=== PATIENT | male | born 1975 | race Caucasian/White ===

== ENCOUNTER 2019-11-06 07:55 | Outpatient (CLI) | payer BC ==
[2019-11-06] VITALS (7 sets, daily range): BP systolic 121–164; BP diastolic 82–108; PULSE 78–91; TEMP 98.5
[~2019-11-06] VITALS: Ht 175.3 cm; Wt 105.9 kg
[2019-11-06 08:24] LABS: HEMOGLOBIN 15.8 g/dl (13.5-18.0); MEAN CELL VOLUME 91 fl (80.0-100.0); MEAN CORPUSCULAR HEMOGLOBIN 31 pg (27.0-31.0); MEAN CORPUSCULAR HGB CONC 34 g/dl (33.0-37.0); MEAN PLATELET VOLUME 10.1 fl (7.4-10.4); PLATELET COUNT 227 K/mm3 (130-400); RED BLOOD COUNT 5.07 M/mm3 (4.20-5.60); REDCELL DISTRIBUTION WIDTH-CV 12.8 % (11.5-14.5)
[2019-11-06 08:32] LABS: INR 0.9 (0.8-3.0); PROTHROMBIN TIME 10.2 SECONDS (9.7-12.8)
[2019-11-06 08:39] LABS: CALCIUM 9.6 mg/dL (8.4-10.2); CREATININE, serum 0.89 (0.66-1.25); POTASSIUM 4.4 mmol/L (3.4-5.0)
[2019-11-06] MEDS ORDERED: MULTI VITAMINS1 TAB PO (08:44)
--- NOTE | 2019-11-06 09:40 | NUR ---
FERCHO complete. Pt resting in bed. VS back to baseline. Spouse bedside
--- NOTE | 2019-11-06 10:40 | NUR ---
INT discontinued intact . Discharge instructions given . Transferred to private car by rajesh
== END 2019-11-06 10:41 | disposition home or self-care (01) ==
LOC: COL.RAD 07:55
PROVIDERS: Internal Medicine Cardiovascular Disease
DX: I35.0 Nonrheumatic aortic (valve) stenosis (principal)
CPT/HCPCS: J2250; J2704; J3010; J7120

== ENCOUNTER → 2020-08-07 | Outpatient (CLI) | payer BC ==
[~2020-08-07] VITALS: Ht 175.3 cm; Wt 109.3 kg
[~2020-08-07] MED LIST: MULTI VITAMINS1 TAB PO; ONE-A-DAY ESSE1 EACH PO
[2020-08-07 11:47] VITALS: BP 171/119; PULSE 89
--- NOTE | 2020-08-07 11:57 | NUR ---
repeat blood pressure 171/102
[2020-08-07 13:10] VITALS: BP 172/111; PULSE 85
== END ==
LOC: COL.RAD 07-28 11:45
DX: M51.9 Unspecified thoracic, thoracolumbar and lumbosacral intervertebral disc disorder (principal)
CPT/HCPCS: J3301

== ENCOUNTER 2021-10-08 15:14 | Inpatient (IN) | payer BC ==
[~2021-10-08] VITALS: Ht 172.7 cm; Wt 113.7 kg
[2021-10-08 16:24] LABS: BASO % 0.1 % (0.0-2.0); GRAN # 5.8 K/mm3 (1.4-6.5); GRAN % 86.9 % (42.2-75.2); HEMATOCRIT 42.1 % (42.0-52.0); HEMOGLOBIN 14.7 g/dl (13.5-18.0); LYMPH # 0.7 K/mm3 (1.2-3.4); MEAN CELL VOLUME 87 fl (80.0-100.0); MEAN CORPUSCULAR HEMOGLOBIN 30 pg (27-31); MEAN CORPUSCULAR HGB CONC 35 g/dl (33.0-37.0); MEAN PLATELET VOLUME 10.8 fl (7.4-10.4); MONO # 0.2 K/mm3 (0.1-0.6); MONO % 2.7 % (1.7-9.3); PLATELET COUNT 155 K/mm3 (130-400); RED BLOOD COUNT 4.83 M/mm3 (4.20-5.60); REDCELL DISTRIBUTION WIDTH-CV 12.5 % (11.5-14.5)
[2021-10-08 16:42] LABS: ALANINE AMINOTRANSFERASE 38 U/L (0-55); ALBUMIN 3.5 gm/dL (3.5-5.0); ALKALINE PHOSPHATASE 60 U/L (40-150); ANION GAP 12 mmol/L (7-16); AST,SGOT 50 U/L (5-34); BILIRUBIN,TOTAL 0.6 mg/dL (0.2-1.2); BLOOD UREA NITROGEN 7 mg/dL (9-21); CALCIUM 8.7 mg/dL (8.4-10.2); CARBON DIOXIDE 26 mmol/L (22-29); CHLORIDE 98 mmol/L (98-107); CREATININE, serum 0.95 mg/dL (0.72-1.25); GLUCOSE 105 mg/dL (70-99); SODIUM 136 mmol/L (136-145); TOTAL PROTEIN 7.3 gm/dL (6.2-8.1)
[2021-10-08 16:50] LABS: TROPONIN-I < 0.010 ng/mL (0.00-0.033)
[2021-10-08 17:30] LABS: COLLECTION METHOD CLEAN CATCH
[2021-10-08 17:36] LABS: MUCOUS Present (NOT PRESENT); PH 6 (5-8); SQUAMOUS EPITHELIAL None Seen /hpf (0-10); URINE APPEARANCE Clear (CLEAR/HAZY); URINE BACTERIA None Seen (NONE SEEN); URINE BILIRUBIN Negative (NEGATIVE); URINE BLOOD Negative (NEGATIVE); URINE COLOR Yellow (YELLOW); URINE GLUCOSE Negative (NEGATIVE); URINE KETONE 2+ (NEGATIVE); URINE LEUKOCYTE ESTERASE Negative (NEGATIVE); URINE NITRATE Negative (NEGATIVE); URINE PROTEIN(semi-quant) 1+ (NEGATIVE); URINE RBC 0-2 /hpf (0-2); URINE UROBILINOGEN Negative (NEGATIVE); URINE WBC 0-2 /hpf (0-2)
[2021-10-08 18:43] LABS: INR 1.3 (0.8-3.0); PROTHROMBIN TIME 14.8 SECONDS (9.7-12.8)
[2021-10-08 18:52] LABS: C-REACTIVE PROTEIN 8.05 mg/dL (0.00-0.50); MAGNESIUM 1.9 mg/dL (1.6-2.6)
--- NOTE | 2021-10-08 23:53 | NUR ---
ARRIVED TO UNIT VIA WHEELCHAIR, PATIENT IS ACTING ANNOYED AND GIVING RUDE ANSWERS AND BEING DEMANDING, UDPATED PATIENT ON PLAN OF CARE, O@2L PER NC, WILL CONTINUE TO MONITOR.
[2021-10-09] VITALS (7 sets, daily range): BP systolic 122–143; BP diastolic 72–901; PULSE 59–88; TEMP 97.6–98.4
--- NOTE | 2021-10-09 02:13 | NUR ---
Resting quietly, updated on plan of care, O2@2L per NC in use, call hanson w/i reach, tolerating diet w/o issue. no c/o pain, will continue to monitor.
[2021-10-09 07:22] LABS: ALBUMIN 3.1 gm/dL (3.5-5.0); BILIRUBIN,TOTAL 0.4 mg/dL (0.2-1.2); CALCIUM 8.6 mg/dL (8.4-10.2); CREATININE, serum 0.77 mg/dL (0.72-1.25); TOTAL PROTEIN 6.7 gm/dL (6.2-8.1)
[2021-10-09 07:40] LABS: GRAN # 3.2 K/mm3 (1.4-6.5); GRAN % 82.2 % (42.2-75.2); HEMOGLOBIN 13.8 g/dl (13.5-18.0); LYMPH # 0.5 K/mm3 (1.2-3.4); LYMPH % 13.5 % (20.0-51.0); MEAN CELL VOLUME 89 fl (80.0-100.0); MEAN CORPUSCULAR HEMOGLOBIN 31 pg (27-31); MEAN CORPUSCULAR HGB CONC 35 g/dl (33.0-37.0); MEAN PLATELET VOLUME 11.7 fl (7.4-10.4); MONO # 0.2 K/mm3 (0.1-0.6); MONO % 3.8 % (1.7-9.3); PLATELET COUNT 165 K/mm3 (130-400); REDCELL DISTRIBUTION WIDTH-CV 12.4 % (11.5-14.5)
--- NOTE | 2021-10-09 11:25 | NUR ---
Patient lying in prone position upon entering the room. Respirations even and unlabored. Patient currently requiring 2L of O2 via nasal cannula. Dypsnea upon exertion noted. Scheduled medications given. Shift assessment performed. Patient denies any pain, discomfort, or further needs at this time. Call light in reach. VSS. Patient A&O.
--- NOTE | 2021-10-09 14:36 | NUR ---
SW attempted to contact patient and was unsuccessful
--- NOTE | 2021-10-09 18:00 | NUR ---
Patient has had an ok day. Currently requiring 2L of O2 via nasal cannula. Denies any pain, discomfort, SOA, or any further needs at this time. VSS. Patient A&O. Call light in reach.
[2021-10-10 03:04] VITALS: BP 120/60; PULSE 73; TEMP 98.1
--- NOTE | 2021-10-10 07:22 | NUR ---
PT WEANED TO 0.5L O2 SATS DROPPED, RETURNED TO 2L PER NC, UP AD PEDRO IN ROOM, HAS BEEN SLEEPING IN PRONE POSITION
[2021-10-10 08:08] LABS: BASO % 0.1 % (0.0-2.0); GRAN # 7.9 K/mm3 (1.4-6.5); GRAN % 85.8 % (42.2-75.2); HEMATOCRIT 42.7 % (42.0-52.0); HEMOGLOBIN 14.3 g/dl (13.5-18.0); LYMPH # 0.9 K/mm3 (1.2-3.4); LYMPH % 9.5 % (20.0-51.0); MEAN CELL VOLUME 91 fl (80.0-100.0); MEAN CORPUSCULAR HEMOGLOBIN 31 pg (27-31); MEAN CORPUSCULAR HGB CONC 34 g/dl (33.0-37.0); MEAN PLATELET VOLUME 11.2 fl (7.4-10.4); MONO # 0.4 K/mm3 (0.1-0.6); MONO % 4.1 % (1.7-9.3); PLATELET COUNT 214 K/mm3 (130-400); RED BLOOD COUNT 4.69 M/mm3 (4.20-5.60); REDCELL DISTRIBUTION WIDTH-CV 12.6 % (11.5-14.5)
[2021-10-10 08:19] LABS: ALBUMIN 3.2 gm/dL (3.5-5.0); BILIRUBIN,TOTAL 0.3 mg/dL (0.2-1.2); C-REACTIVE PROTEIN 3.11 mg/dL (0.00-0.50); CREATININE, serum 0.82 mg/dL (0.72-1.25); POTASSIUM 4.3 mmol/L (3.5-4.5); TOTAL PROTEIN 6.8 gm/dL (6.2-8.1)
[2021-10-10 08:52] VITALS: BP 137/87; PULSE 78; TEMP 97.4
--- NOTE | 2021-10-10 11:19 | NUR ---
Scheduled medications given. Shift assessment performed. Patient currently requiring 2L of O2 via nasal cannula. States that he has increased SOA this morning. Currently sating 94%. Encouraged to deep breath, sleep prone, and use call light if breathing becomes increasingly labored. Patient denies any pain, discomfort, or further needs at this time. VSS. Patient A&O.
--- NOTE | 2021-10-10 11:30 | NUR ---
Patient denies any N/V. Patient is afebrile. Patient states that he has had an episode of diarrhea today.
[2021-10-10 12:35] VITALS: BP 133/82; PULSE 74; TEMP 98.2
[2021-10-10 16:34] VITALS: BP 129/87; PULSE 84; TEMP 97.8
--- NOTE | 2021-10-10 18:00 | NUR ---
Patient has had an uneventful day. Currently requiring 2 L of O2 via nasal cannula. Denies any pain, discomfort, or further needs at this time. VSS. Patient A&O. Call light in reach.
[2021-10-10 20:30] VITALS: BP 144/87; PULSE 82; TEMP 98.3
[2021-10-11 00:14] VITALS: BP 131/86; PULSE 72; TEMP 96.8
[2021-10-11 04:30] VITALS: BP 136/82; PULSE 64; TEMP 97.8
[2021-10-11 07:08] LABS: HEMOGLOBIN 13.8 g/dl (13.5-18.0); MEAN CELL VOLUME 91 fl (80.0-100.0); MEAN CORPUSCULAR HEMOGLOBIN 31 pg (27-31); MEAN CORPUSCULAR HGB CONC 34 g/dl (33.0-37.0); PLATELET COUNT 230 K/mm3 (130-400); RED BLOOD COUNT 4.51 M/mm3 (4.20-5.60); REDCELL DISTRIBUTION WIDTH-CV 12.4 % (11.5-14.5)
[2021-10-11 07:42] LABS: ALBUMIN 3.1 gm/dL (3.5-5.0); BILIRUBIN,TOTAL 0.4 mg/dL (0.2-1.2); CALCIUM 8.7 mg/dL (8.4-10.2); CREATININE, serum 0.85 mg/dL (0.72-1.25); POTASSIUM 3.9 mmol/L (3.5-4.5); TOTAL PROTEIN 6.5 gm/dL (6.2-8.1)
[2021-10-11 08:04] VITALS: BP 142/83; PULSE 72; TEMP 97.6
[2021-10-11 09:11] LABS: BAND 3 % (0-10); LYMPHOCYTE 12 % (20.0-51.0); NEUTROPHILS 76 % (42.0-75.2)
[2021-10-11 09:14] LABS: PLATELET ESTIMATE NORMAL (NORMAL)
--- NOTE | 2021-10-11 10:50 | NUR ---
PT ALERT AND ORIENTED. EXPRESSING WISHES TO GO HOME. PT ABLE TO AMBULATE INDEPENDENT IN ROOM. PT UPPER LOBES CLEAR BILATERALLY, FINE CRACKLES NOTED IN BASES BILATERALLY. PT HAS 2+ PULSES IN ALL EXTREMITIES, CAP REFILL <3S. PT ACTIVE BOWEL SOUNDS, SOFT, NON-TENDER. PT CALL LIGHT WITHIN REACH.
[2021-10-11 12:25] VITALS: BP 138/96; PULSE 73; TEMP 97.8
--- NOTE | 2021-10-11 14:41 | NUR ---
[employer] Programmer contacted patient by phone to discuss discharge planning as he is in isolation for COVID. Patient lives in [place] with his , Justina (ph#[phone]) and sees Dr. Joe for primary care. Patient obtains medications from either [email or web address] or [facility] with no difficulties. Patient does not use any DME and is independent with [facility]. Patient does not normally use oxygen but may need it at time of discharge. SW will continue to monitor. Patient does not have Advance Directives at this time. Patient plans to return home upon discharge. Discharge Plan: Home (possible home oxygen)
[2021-10-11 15:41] VITALS: BP 148/87; PULSE 84; TEMP 97.8
--- NOTE | 2021-10-11 18:14 | NUR ---
PT STATES COVID TEST WAS TAKEN AT [facility] THROUGH STATION IN THE MALL PARKING [facility].
--- NOTE | 2021-10-11 19:39 | NUR ---
PT CONTINUING ON PLAN OF CARE. PT IV SITE IN RAC CAUSING PAIN, UNABLE TO FLUSH. RESTARTED ATTEMPTS. MULTIPLE ATTEMPTS, CHARGE NURSE NOTIFIED, DRY HEAT ROOM ATTENDANT NOTIFIED. NEW IV STARTED BY LINE CREW SUPERVISOR NURSE IN LEFT FOREARM. PT VITALS REMAINED STABLE THIS SHIFT. PT INDEPENDENT IN ROOM.
[2021-10-11 20:17] VITALS: BP 143/80; PULSE 77; TEMP 98.3
[2021-10-12 01:17] VITALS: BP 128/77; PULSE 66; TEMP 97.7
[2021-10-12 04:47] VITALS: BP 147/99; PULSE 84; TEMP 97.5
--- NOTE | 2021-10-12 05:46 | NUR ---
Patient tolerating 1L O2 w/o issue, telemetry in use, call hanson w/i reach, no c/o at this time, ambulates independently in room, tolerating diet.
[2021-10-12 07:29] LABS: HEMATOCRIT 45.7 % (42.0-52.0); HEMOGLOBIN 15.7 g/dl (13.5-18.0); MEAN CELL VOLUME 90 fl (80.0-100.0); MEAN CORPUSCULAR HEMOGLOBIN 31 pg (27-31); MEAN CORPUSCULAR HGB CONC 34 g/dl (33.0-37.0); MEAN PLATELET VOLUME 11.2 fl (7.4-10.4); PLATELET COUNT 267 K/mm3 (130-400); RED BLOOD COUNT 5.07 M/mm3 (4.20-5.60); REDCELL DISTRIBUTION WIDTH-CV 12.2 % (11.5-14.5)
[2021-10-12 07:52] LABS: ALBUMIN 3.6 gm/dL (3.5-5.0); BILIRUBIN,TOTAL 0.5 mg/dL (0.2-1.2); CALCIUM 9.4 mg/dL (8.4-10.2); CREATININE, serum 0.9 mg/dL (0.72-1.25); POTASSIUM 3.8 mmol/L (3.5-4.5); TOTAL PROTEIN 7.4 gm/dL (6.2-8.1)
[2021-10-12 08:30] VITALS: BP 136/83; PULSE 83; TEMP 98
[2021-10-12 09:37] LABS: BAND 1 % (0-10); LYMPHOCYTE 23 % (20.0-51.0); METAMYELOCYTE 1 % (0-0); NEUTROPHILS 67 % (42.0-75.2); PLATELET ESTIMATE NORMAL (NORMAL)
--- NOTE | 2021-10-12 10:08 | NUR ---
Patient awake lying in bed upon entry to room. Respirations even and unlabored. Currently on RA. Denies any pain, discomfort, N/V. Patient is afebrile. Patient does report dyspnea upon exertion and diarrhea, especially after meals. IV in left hand DC'd. Catheter intact, no signs of phlebitis. Scheduled medications given. Shift assessment completed. Patient denies any further needs at this time. Call light in reach. VSS. Patient A&O.
[2021-10-12 12:12] VITALS: BP 133/77; PULSE 87; TEMP 98.1
[2021-10-12] MEDS ORDERED: MONODOX100 PO (12:27)
[2021-10-12] MEDS ORDERED: DECADRON6 MG PO (12:28)
[2021-10-12] MEDS ORDERED: PROAIR HFA0.09 MG/AC IH (12:29)
[2021-10-12] MEDS ORDERED: OMNICEF 300MG300 MG PO (12:29)
--- NOTE | 2021-10-12 13:00 | NUR ---
Patient deemed fit for discharge. IV DC's, catheter intact, no signs of phlebitis. Discharge instruction/education given. Importance placed on finishing antibiotics as perscribed. All questions answered. Patient denies any further pain, discomfort, or further needs at this time. Not cvurrently requiring O2. Patient ambulated from building escorted by [facility] Staff. transporting home. VSS. Patient A&O.
--- NOTE | 2021-10-12 13:41 | NUR ---
Patient to discharge home today and will not need home oxygen.
== END 2021-10-12 13:00 | disposition home or self-care (01) | DRG 177 ==
LOC: COL.ER 15:14 → MEDICAL 19:45
PROVIDERS: Emergency Medicine; Nurse Practitioner Family; ADMIT Internal Medicine
PROC: XW033E5 Introduction of Remdesivir Anti-infective into Peripheral Vein, Percutaneous Approach, New Technology Group 5 (ICD-10-PCS; principal; 2021-10-08)
DX: U07.1 COVID-19 (principal); J96.01 Acute respiratory failure with hypoxia; J12.82 Pneumonia due to coronavirus disease 2019; I10 Essential (primary) hypertension; Z73.0 Burn-out
CPT/HCPCS: 99222-AI; 99231-AI; 99232-AI; 99239; J0696; J1100; J1650; J7030; J7050; J8540; Q9967